=== PATIENT | female | born 1995 | race Two or more races ===

== ENCOUNTER 2024-12-10 22:02 | Emergency (ER) | payer MEDICAID, SELFPAY ==
[2024-12-10 22:04] VITALS: BMI 34.2
--- NOTE | 2024-12-10 22:06 | PC.NURSE ---
PA RATTS ASSESSING PATIENT AT TRIAGE AND NOT A STROKE ALERT PER PA RATTS.
[2024-12-10 22:45] VITALS: BP 121/79; PULSE 76; RESP 20; TEMP 36.8; O2SAT 97
--- NOTE | 2024-12-11 01:28 | XR_ITS ---
Examination: AP chest single view Technique one AP portable upright chest single view Date and time: December 11, 2024, 0135 hours Comparison July 22, 2023 INDICATIONS: Chest pain chest pressure beginning 2 days ago. FINDINGS: Normal heart size No lobar pneumonia or pulmonary edema. Suspicious for 12 mm pulmonary nodule left upper lobe IMPRESSION: Recommend CT chest without contrast follow-up to confirm 12 mm pulmonary nodule left upper lobe
[2024-12-11 02:12] LABS: Basophils # (Auto) 0.0 Thou/mm3 (0.0-0.2); Basophils % (Auto) 0 % (0-2.5); Eosinophils # (Auto) 0.2 Thou/mm3 (0.0-0.5); Eosinophils % (Auto) 2 % (0-10); Hematocrit 39.3 % (36.0-46.0); Hemoglobin 13.1 g/dL (12.0-16.0); Immature Granulocytes Auto 0.01 Thou/mm3 (0.00-0.00); Lymphocytes # (Auto) 3.2 Thou/mm3 (1.0-4.8); Lymphocytes % (Auto) 40 % (10-50); Mean Corpuscular HGB Conc 33.3 g/dl (31.0-37.0); Mean Corpuscular Hemoglobin 29.9 pg (25.0-35.0); Mean Corpuscular Volume 90 fL (80-100); Monocytes # (Auto) 0.4 Thou/mm3 (0.0-0.8); Monocytes % (Auto) 5 % (0-12); Neutrophils # (Auto) 4.1 Thou/mm3 (1.8-7.7); Neutrophils % (Auto) 52 % (37-80); Nucleated Red Blood Cell # 0.00 Thou/mm3 (0.00-0.00); Nucleated Red Blood Cell % 0 /100 WBC (0); Platelet Count 290 Thou/mm3 (140-440); RDW Standard Deviation 40.6 fL (36.4-46.3); Red Blood Count 4.38 Miln/mm3 (4.00-5.20); White Blood Count 7.9 Thou/mm3 (3.6-11.0)
[2024-12-11 02:24] LABS: INR 1.1 (0.9-1.3); Partial Thromboplastin Time 33.0 Seconds (22.0-36.0); Prothrombin Time 11.8 Seconds (9.0-12.2)
[2024-12-11 02:25] LABS: Troponin I < 0.002 ng/mL (0.0-0.045)
[2024-12-11 02:38] LABS: D-Dimer 380 ng/mL (<600)
[2024-12-11 02:39] LABS: Collection Type, Urine Clean Catch
[2024-12-11 02:42] LABS: HCG Qualitative,Urine Negative
[2024-12-11 02:44] LABS: Amorphous Crystals,Urine Present (Absent); Bacteria,Urine Rare; Bilirubin,Urine Negative (Negative); Blood,Urine 3+ (Negative); Clarity,Urine Turbid (Clear/Hazy); Color,Urine Lt-Yellow (Lt Yel-Yel); Culture Indicated,Urine Not Indicated; Glucose, Urine Negative (Negative); Ketones,Urine Negative (Negative); Leukocyte Esterase,Urine Positive (Negative); Nitrite,Urine Negative (Negative); PH,Urine 6.0 (5.0-7.0); Protein,Urine Trace (Neg - Trace); RBC,Urine 14 /hpf (0-3); Specific Gravity,Urine 1.022 (1.001-1.035); Squamous Epithelial Cell,Urine 23 /hpf (0-5); Urobilinogen,Urine Negative mg/dL (0.0-1.0); WBC,Urine 5 /hpf (0-5)
[2024-12-11 02:50] LABS: Amphetamine/Methamp Scrn,U Negative (Negative); Barbiturate Screen,Urine Negative (Negative); Benzodiazepines Screen,Urine Negative (Negative); Benzoylecgonine Screen, Ur Negative (Negative); Fentanyl Screen,Urine Negative (Negative); Opiate Screen,Urine Negative (Negative); THC Screen,Urine Negative (Negative)
--- NOTE | 2024-12-11 05:13 | EDNOTE_ITS ---
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 Limitations: no limitations Related Data Allergies Allergy/AdvReac Type Severity Reaction Status Date / Time No Known Allergies Allergy Verified 12/10/24 22:03 Review of Systems Review of Systems Systems Reviewed: All systems reviewed, normal except as documented Constitutional Constitutional: Reports system reviewed and no additional complaints, except as documented, Denies fever(s) and Denies headache(s) ENT Ears, Nose, Mouth, and Throat: Denies disequilibrium and Denies headache(s) Cardiovascular Cardiovascular: Reports system reviewed and no additional complaints, except as documented, Reports as per HPI, Reports chest pain and Denies dyspnea Respiratory Respiratory: Reports system reviewed and no additional complaints, except as documented, Denies cough and Denies dyspnea Gastrointestinal Gastrointestinal: Reports system reviewed and no additional complaints, except as documented, Denies abdominal pain, Denies nausea and Denies vomiting Neurologic Neurologic: Reports system reviewed and no additional complaints, except as documented, Denies confusion, Denies disequilibrium and Denies headache(s) Psychiatric Psychiatric: Denies confusion Past Medical History Social History SMOKING STATUS: Never smoker ED Exam General Limitations: Present no limitations General appearance: Present alert, in no apparent distress and anxious (mild) Head Head exam: Present atraumatic Eye Eye exam: Present normal appearance, PERRL and EOMI ENT ENT exam: Present normal exam, normal oropharynx and mucous membranes moist Neck Neck exam: Present normal inspection, full ROM and trachea midline Chest Chest inspection: Present normal inspection and symmetric chest wall rise Respiratory Respiratory exam: Present normal lung sounds bilaterally Cardiovascular Cardiovascular exam: Present regular rate, normal rhythm and normal heart sounds Abdominal Exam Abdominal exam: Present soft and normal bowel sounds Extremities Exam Extremities exam: Present normal inspection and full ROM Back Exam Back exam: Present normal inspection and full ROM Neurological Exam Neurological exam: Present alert, oriented X3 and CN II-XII intact Psychiatric Psychiatric exam: Present normal affect and normal mood Skin Skin exam: Present warm, dry, intact and normal color Course Quality Measures none Orders Category Date Time Status EKG (ED ONLY) *Do not use* NOW Care 12/10/24 22:07 Completed EKG (ED Only) Stat Exams 12/10/24 22:07 Ordered XR chest 1V portable Stat Exams 12/11/24 01:28 Taken CBC Stat Lab 12/11/24 01:55 Completed D-Dimer Stat Lab 12/11/24 01:55 Completed Drug Screen,Urine Stat Lab 12/11/24 02:30 Completed HCG Qualitative,Urine Stat Lab 12/11/24 02:30 Completed INR [Prothrombin Time with INR] Stat Lab 12/11/24 01:55 Completed PTT [Partial Thromboplastin Time] Stat Lab 12/11/24 01:55 Completed Troponin I Stat Lab 12/11/24 01:55 Completed Urinalysis, C/S if Indicated Stat Lab 12/11/24 02:30 Completed Vital Signs Vital signs: Vital Signs Temperature 98.2 F 12/10/24 22:45 Pulse Rate 76 12/10/24 22:45 Respiratory Rate 20 12/10/24 22:45 Blood Pressure 121/79 12/10/24 22:45 Pulse Oximetry (%) 97 12/10/24 22:45 Oxygen Delivery Method Room Air 12/10/24 22:45 O2 at 97% on RA and WNLs Chest Pain MDM Narrative MDM Narrative:: 29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 Physical exam reveals clear lungs and normal WOB. RRR. Normal pupil response and EOM. CN II-XII grossly intact. Gait normal. Speech normal. Patient is afebrile, alert, but mildly anxious. EKG is NSR. Wet CXR unread unremarkable pending official report. Normal trop and D-dimer. No leukocytosis. Platelets and coags normal. CMP unremarkable. Upon reassessment, symptoms are gone. Patient data External records reviewed:: [facility] previous records Clinical information provided by:: patient Social determinants that could affect healthcare access:: none Patient has the following chronic illnesses:: APS How is presenting disease/condition affected by chronic disease/condition?: exacerbated by Evaluation data The following diagnostics were reviewed and interpreted by me:: lab results, radiology exam(s) and EKG tracing(s) Lab and/or radiology exams considered but not ordered:: ordered Interpretation Summary: above Medications / Prescriptions Medications or Prescriptions considered but not ordered:: not ordered Medication administrations:: n/a Consultations Consultation(s) initiated? (list below): No Diagnosis Chest Pain Differential Diagnosis: fracture of rib, pneumothorax, stable angina, unstable angina pectoris, atypical chest pain, st elevation myocardial infarction, costochondritis, chest pain and biliary colic Most likely diagnosis given after review of the tests above:: atypical chest pain Admission Indicated Admission indicated?: not indicated Admission Request Was there a request for admission?: No Disposition Plan Disposition Plan: Discharge Discharge Attestation Discharge Attestation: The patient and all family members were given an opportunity to ask questions and understood the discharge instructions. Discharge instructions specifically effects, indications for sooner follow up or return to the emergency department, and the expected course of current diagnosis. Patient condition: Stable Discharge Plan Plan Patient Disposition: HOME (Self Care) Discharge Disposition comment: Stable Problem List Clinical Impression: Atypical chest pain Patient/Caregiver Discharge Instructions Education Materials: ED Chest Pain, Uncertain Cause Additional Instructions: Please follow-up with PCP within 24-48 hours and return immediately if symptoms worsen. Print Language: Romanian Stand Alone Forms: Patient Portal Info Letter AVA/GAYLE Supervising Physician AVA/GAYLE Supervising Physician: Dr. Muñiz
== END 2024-12-11 04:13 | disposition home or self-care (01) ==
LOC: SERX 12-11 04:15
PROVIDERS: Physician Assistant; Emergency Provider Emergency Medicine; PCP Nurse Practitioner Family
DX: R07.89 Other chest pain (principal)
CPT/HCPCS: 36415; 71045; 80307; 81001; 81025; 84484; 85025; 85379; 85610; 85730; 93005; 99283

== ENCOUNTER 2025-03-08 21:07 | Emergency (ER) | payer MEDICAID, SELFPAY ==
[2025-03-08 21:09] VITALS: BMI 31.2
--- NOTE | 2025-03-08 21:12 | EKG_ITS ---
[facility] Test Date: 2025-03-08 Pat Name: DAILY GREEN Department: Room: - Gender: Female Care Information Associate: : 1995 Requested By: ED Temporary Provider Order Number: [id number] Reading MD: ED Temporary Provider Measurements Intervals [place] Rate: 72 P: 31 [place]: 166 QRS: -9 QRSD: 94 T: 17 QT: 369 QTc: 405 Interpretive Statements SINUS RHYTHM MODERATE VOLTAGE CRITERIA FOR LVH, CONSIDER NORMAL VARIANT [MEETS CRITERIA IN ONE OF: R(aVL), S(V1), R(V5), R(V5/V6)+S(V1)] POSSIBLE ANTERIOR MYOCARDIAL INFARCTION , OF INDETERMINATE AGE [30 ms Q WAVE IN V3/V4, OR R < 0.2 mV IN V4] Compared to ECG 07/22/2023 09:42:16 Myocardial infarct finding now present /store/S0/[id number]/ecg/[id number].pdf
[2025-03-08 21:14] VITALS: BP 118/75; PULSE 79; RESP 18; TEMP 36.8; O2SAT 97
--- NOTE | 2025-03-08 21:18 | EDRME_ITS ---
Rapid Medical Screening Exam [facility] Arrival date/time: 03/08/25 21:07 This is a case of 29-year-old female with no medical history came in in the emergency room with multiple concern patient initially came with chest pain and palpitation today patient also have headache and dizziness and facial numbness due to persistence of the symptoms this patient decided to sought consult here in the emergency room Chief Complaint: Chest Pain Time Seen by Provider: 03/08/25 21:17 Vital signs: Vital Signs Temperature 98.2 F 03/08/25 21:14 Pulse Rate 79 03/08/25 21:14 Respiratory Rate 18 03/08/25 21:14 Blood Pressure 118/75 03/08/25 21:14 Pulse Oximetry (%) 97 03/08/25 21:14 Oxygen Delivery Method Room Air 03/08/25 21:14 Exam: Patient is awake alert oriented x 4 no focal deficit GCS 15/15 steady gait lungs sound is clear heart normal rate regular rhythm no murmur Clinical Impression: Headache chest pain
--- NOTE | 2025-03-08 21:18 | XR_ITS ---
Examination: CT brain head without contrast. 2-D sagittal coronal reconstructions Date and time of exam: March 08, 2025, 10:50 p.m. INDICATIONS: Chest pain and dizziness today CTDI: vol (mGy): 50.9 DLP: (mGycm): 936 Technique: Multiple CT axial sections of the brain have been obtained, 5 mm slice thickness. Contrast has not been administered. 2-D sagittal, coronal reconstructions have been obtained Low dose protocols were performed. One or more of the following dose reduction techniques were used; automated exposure control, adjustment of the mA and/or KV according to patient size, use of iterative reconstruction technique. Findings: No significant ventricular enlargement. Intra-axial or extra-axial hemorrhage density is not seen. No mass effect or midline shift Basal cisterns are not remarkable. Fourth ventricle is midline. Cranial vault intact. Impression: Negative for acute hemorrhage, mass effect or midline shift Advise clinical correlation and follow-up accordingly
[2025-03-08 22:01] LABS: Basophils # (Auto) 0.1 Thou/mm3 (0.0-0.2); Basophils % (Auto) 1 % (0-2.5); Eosinophils # (Auto) 0.3 Thou/mm3 (0.0-0.5); Eosinophils % (Auto) 3 % (0-10); Hematocrit 37.9 % (36.0-46.0); Hemoglobin 12.7 g/dL (12.0-16.0); Immature Granulocytes Auto 0.02 Thou/mm3 (0.00-0.00); Lymphocytes # (Auto) 3.6 Thou/mm3 (1.0-4.8); Lymphocytes % (Auto) 36 % (10-50); Mean Corpuscular HGB Conc 33.5 g/dl (31.0-37.0); Mean Corpuscular Hemoglobin 29.8 pg (25.0-35.0); Mean Corpuscular Volume 89 fL (80-100); Monocytes # (Auto) 0.6 Thou/mm3 (0.0-0.8); Monocytes % (Auto) 6 % (0-12); Neutrophils # (Auto) 5.4 Thou/mm3 (1.8-7.7); Neutrophils % (Auto) 54 % (37-80); Nucleated Red Blood Cell # 0.00 Thou/mm3 (0.00-0.00); Nucleated Red Blood Cell % 0 /100 WBC (0); Platelet Count 313 Thou/mm3 (140-440); RDW Standard Deviation 41.1 fL (36.4-46.3); Red Blood Count 4.26 Miln/mm3 (4.00-5.20); White Blood Count 10.0 Thou/mm3 (3.6-11.0)
[2025-03-08 22:16] LABS: B-Type Natriuretic Peptide < 20 pg/mL (0-100)
[2025-03-08 22:18] LABS: Alanine Aminotransferase 13 U/L (10-49); Albumin, Serum 5.1 gm/dL (3.5-5.0); Albumin/Globulin Ratio 2.2 (1.2-2.2); Alkaline Phosphatase 102 U/L (46-116); Anion Gap 9 (7-16); Aspartate Amino Transferase 17 U/L (0-34); BUN/Creatinine Ratio 13 Ratio (12-20); Bilirubin,Total 0.4 mg/dL (0.3-1.2); Blood Urea Nitrogen 8 mg/dL (9-23); Calcium 9.8 mg/dL (8.3-10.6); Calcium (Corrected) 9.8 mg/dL (8.5-10.1); Carbon Dioxide 24.8 mMol/L (20.0-31.0); Chloride 105 mMol/L (98-107); Creatinine (Component) 0.6 mg/dL (0.6-1.3); Estimated Creatinine Clearance 124.1 mL/min (>60); Globulin 2.3 gm/dL (2.3-3.5); Glucose 97 mg/dL (74-106); Osmolality,Calculated 275 (275-295); Potassium 3.8 mMol/L (3.4-5.1); Sodium 139 mMol/L (136-145); Total Protein 7.4 gm/dL (5.7-8.2); Troponin I < 0.002 ng/mL (0.0-0.045); eGFR > 60 See Note
[2025-03-08 22:33] VITALS: BP 109/68; PULSE 75; RESP 19; TEMP 37.1; O2SAT 100
[2025-03-08 22:37] LABS: Collection Type, Urine Clean Catch
[2025-03-08 22:41] LABS: HCG Qualitative,Urine Negative
[2025-03-08 22:43] LABS: Bacteria,Urine 1+; Bilirubin,Urine Negative (Negative); Blood,Urine 3+ (Negative); Clarity,Urine Turbid (Clear/Hazy); Color,Urine Lt-Yellow (Lt Yel-Yel); Glucose, Urine Negative (Negative); Ketones,Urine Negative (Negative); Leukocyte Esterase,Urine Negative (Negative); Nitrite,Urine Negative (Negative); PH,Urine 6.0 (5.0-7.0); Protein,Urine Negative (Neg - Trace); RBC,Urine 17 /hpf (0-3); Specific Gravity,Urine 1.009 (1.001-1.035); Squamous Epithelial Cell,Urine 8 /hpf (0-5); Urobilinogen,Urine Negative mg/dL (0.0-1.0); WBC,Urine 3 /hpf (0-5)
--- NOTE | 2025-03-08 22:56 | EDNOTE_ITS ---
ED Chest Pain RME/HPI General Chief Complaint: Chest Pain Stated Complaint: CHEST THIGHTNESS, SHARP PAIN, HARD TO BREATH, DIZZ Time Seen by Provider: 03/08/25 21:17 Arrival date/time: 03/08/25 21:07 RME / HPI RME / HPI narrative: 03/08/25 21:07 This is a case of 29-year-old female with no medical history came in in the emergency room with multiple concern patient initially came with chest pain and palpitation today patient also have headache and dizziness and facial numbness due to persistence of the symptoms this patient decided to sought consult here in the emergency room Dr. Blanco?s Main ED Evaluation: 29yo female presents to the ED for multiple complaints. Patient states she's had intermittent chest pain, dizziness, and palpitations for the last 2-3 months. She has not been evaluated by her PCP for this. Patient denies any falls, injuries, or loss of consciousness. Denies any other associated symptoms. Denies starting any new medications or supplements. NKA. Related Data Allergies Allergy/AdvReac Type Severity Reaction Status Date / Time No Known Allergies Allergy Verified 03/08/25 21:08 Review of Systems Review of Systems Systems Reviewed: All systems reviewed, normal except as documented Past Medical History Past Medical History CARDIAC: Negative Congestive Heart Failure RESPIRATORY: Negative Chronic Obstructive Pulmonary Disease (COPD) GENITOURINARY: Negative Renal Disease ENDOCRINE: Negative Diabetes Mellitus Type 1 or Diabetes Mellitus Type 2 Social History SMOKING STATUS: Never smoker ED Exam Narrative Physical exam: Generally patient is alert and in no obvious distress, heart regular rate and rhythm without murmurs rubs gallops, lungs clear to auscultation equal bilaterally, abdomen soft bowel sounds present nondistended nontender, skin is warm pale and dry, neurologic exam no focal motor or sensory deficits cranial nerves II through XII appear to be grossly intact Course Quality Measures none Orders Category Date Time Status EKG (ED ONLY) *Do not use* NOW Care 03/08/25 21:[address] head/brain wo con Stat Exams 03/08/25 21:18 Taken EKG (ED Only) Stat Exams 03/08/25 21:12 Draft BNP [B-Type Natriuretic Peptide] Stat Lab 03/08/25 21:29 Completed CBC Stat Lab 03/08/25 21:29 Completed Comprehensive Metabolic Panel Stat Lab 03/08/25 21:29 Completed HCG Qualitative,Urine Stat Lab 03/08/25 22:05 Completed Troponin I Stat Lab 03/08/25 21:29 Completed Urinalysis Stat Lab 03/08/25 22:05 Completed Vital Signs Vital signs: Vital Signs Temperature 98.2 F 03/08/25 21:14 Pulse Rate 79 03/08/25 21:14 Respiratory Rate 18 03/08/25 21:14 Blood Pressure 118/75 03/08/25 21:14 Pulse Oximetry (%) 97 03/08/25 21:14 Oxygen Delivery Method Room Air 03/08/25 21:14 Chest Pain MDM Narrative MDM Narrative:: Scribe Attestation: 03/08/25 - Helen Hodgson am scribing for and in the presence of Dr. Blanco. Workup was protocoled prior to me seeing the patient. There is no anemia. No leukocytosis. Kidneys and liver appear to be functioning normally. EKG shows normal sinus rhythm at a rate of [address] segment change. Troponin is not elevated. Head CT is negative. Patient's physical exam is completely normal. Patient does have primary care follow-up. She has been experiencing the symptoms for the last 3 months. I interpreted all labs. Patient data External records reviewed:: [facility] previous records (Per chart review, patient was seen here on 12/11/24 for atypical chest pain.) Clinical information provided by:: patient Social determinants that could affect healthcare access:: none Patient has the following chronic illnesses:: none How is presenting disease/condition affected by chronic disease/condition?: no chronic disease Evaluation data The following diagnostics were reviewed and interpreted by me:: lab results, radiology exam(s) and EKG tracing(s) Lab and/or radiology exams considered but not ordered:: none Interpretation Summary: See [facility] Medications / Prescriptions Medications or Prescriptions considered but not ordered:: none Medication administrations:: none Consultations Consultation(s) initiated? (list below): No Diagnosis Chest Pain Differential Diagnosis: other (See MDM) Most likely diagnosis given after review of the tests above:: see clinical impression below Admission Indicated Admission indicated?: not indicated Admission Request Was there a request for admission?: No Disposition Plan Disposition Plan: Discharge Discharge Attestation Discharge Attestation: The patient and all family members were given an opportunity to ask questions and understood the discharge instructions. Discharge instructions specifically effects, indications for sooner follow up or return to the emergency department, and the expected course of current diagnosis. Patient condition: Stable Discharge Plan Plan Patient Disposition: HOME (Self Care) Prescriptions/Referrals Referrals: No Primary/Family,Physician [Primary Care Provider] - In 1 week Problem List Clinical Impression: Chest pain, Palpitations, Paresthesias Patient/Caregiver Discharge Instructions Additional Instructions: Your workup tonight shows no acute abnormality. Follow-up with your doctor for further treatment and evaluation. Print Language: Bangladeshi Stand Alone Forms: Lori Award Info., Patient Portal Info Letter
== END 2025-03-08 23:27 | disposition home or self-care (01) ==
PROVIDERS: Nurse Practitioner Family; Emergency Provider Emergency Medicine
DX: R20.2 Paresthesia of skin (principal); R00.2 Palpitations; R07.89 Other chest pain
CPT/HCPCS: 36415; 70450; 80053; 81001; 81025; 83880; 84484; 85025; 93005; 99283